=== PATIENT | male | born 1950 | race Caucasian/White ===

== ENCOUNTER 2024-07-26 07:19 | Day surgery (SDC) | payer MEDICARE, OTHER ==
[~2024-07-26] VITALS: Ht 180.3 cm; Wt 86.4 kg
[~2024-07-26 07:19] MED LIST: CEFAZOLIN SODIUM 2 GM/20 ML SYR IV SCH; FLOMAX0.4 MG PO; IBLOOD GLUCOSE TEST STRIP 1 EA TEST VI PRN; LACTATED RINGER'S 1,000 ML IV SCH; LIDOCAINE HCL 1% 5 ML SDV INJ ONE; LISINOPRIL-HCT1 EAC1 PO; OMEPRAZOLE20 M1 PO; ROPINIROLE HCL4 MG PO; ZOCOR40 MG PO
[2024-07-26 07:36] VITALS: BP 133/74
[2024-07-26 08:10] LABS: ANION GAP 12.7 (7-21); BUN/CREATININE RATIO 10.75 (6.0-28.6); CREATININE, SERUM 0.93 mg/dL (0.70-1.30); POTASSIUM 3.7 mmol/L (3.5-5.1)
[2024-07-26] MEDS ORDERED: LIDOCAINE HCL 0.5% 50 ML SDV ONE (09:12)
[2024-07-26] MEDS ORDERED: propofoL 200 MG/20 ML VIAL ONE (09:12)
[2024-07-26] MEDS ORDERED: KETOROLAC TROMETHAMINE 30 MG/ML VIAL ONE (09:12)
[2024-07-26] MEDS ORDERED: DEXAMETHASONE SOD PHOS 4 MG/ML VIAL ONE (09:12)
[2024-07-26] MEDS ORDERED: HYDROCODONE/ACETA 5/325 TAB PO PRN (09:45)
[2024-07-26] MEDS ORDERED: fentaNYL citrate 100 MCG/2 ML VIAL ONE (09:50)
[2024-07-26] MEDS ORDERED: HYDROCODON-ACE1 EA10 PO (10:18)
--- NOTE | 2024-07-26 10:40 | NUR ---
07/26/24 1040 Juana Finch 1021- PT ARRIVES TO PACU, RESTING SEMI FOWLERS, VSS ON 6L VIA MASK OPA IN PLACE, REU. PT NOT RESPONSIVE TO NOXIOUS STIMULI. 1026- PT EYES OPEN, ATTEMPTING TO TALK, OPA REMOVED. VS REMAIN STABLE ON 6L VIA MASK, REU. 1028- PT TITRATED TO RA, VSS ON RA. PT DENIES ANY PAIN OR NAUSEA. PT'S R HAND/WRIST ELEVATED ON PILLOW, ICE PACK IN PLACE. CMS INTACT.
[2024-07-26 11:01] VITALS: BP 125/77
--- NOTE | 2024-07-27 14:16 | OR ---
[facility] [address], [place] [address] Signed DATE OF OPERATION: 07/26/2024 SURGEON: Dai Duff MD PREOPERATIVE DIAGNOSIS: Carpal tunnel syndrome, right. POSTOPERATIVE DIAGNOSIS: Carpal tunnel syndrome, right. PROCEDURE PERFORMED: Right carpal tunnel release. TOILET ATTENDANT: None. ANESTHESIA: Desire block. TOURNIQUET TIME: 20 minutes. BRIEF HISTORY: Ryan is a 73-year-old gentleman with pain, numbness and some atrophy in his hand. Nerve conduction studies were consistent with severe carpal tunnel. Risks and benefits of operative treatment were discussed with him. He elected to proceed. PROCEDURE IN DETAIL: Once consent was obtained, he was taken to the operating room. After adequate anesthesia, he was left on the day surgery bed and a hand table was brought in. The hand was prepped and draped in a standard sterile fashion. A 1.5 cm incision was made transversely in the distal wrist crease. The palmaris longus, which was fairly robust was retracted and protected. The underlying transverse carpal ligament was then dissected free of overlying soft tissue proximally and distally. Under loupe magnification it was released proximally a cm and distally to the distal extent. This was carefully palpated using a [place] and found to be completely released. The wound was copiously irrigated with normal saline, closed with 3-0 Stratafix and Steri-Strips. The wound was infiltrated with 5 mL 0.25% plain lidocaine. The wound was dressed with bacitracin, Adaptic 4 x 8s, and gauze. He tolerated the procedure well. All sponge, needle, and instrument counts correct. Electronically Signed By: DAI DUFF MD 07/27/24 1416 PATIENT NAME: RYAN LACKEY OPERATIVE REPORT DATE OF : 46 REPORT #: [id number] PHYSICIAN: DAI DUFF MD PCP: RUBIO TOURE MD REPORT IS CONFIDENTIAL AND NOT TO BE RELEASED WITHOUT AUTHORIZATION [address] [place], [place] [address] Signed Dai Duff MD BA/SIDL /[id number] Copies: ~ Electronically Signed By: DAI DUFF MD 07/27/24 1416 PATIENT NAME: RYAN LACKEY OPERATIVE REPORT DATE OF : 46 REPORT #: [id number] PHYSICIAN: DAI DUFF MD PCP: RUBIO TOURE MD REPORT IS CONFIDENTIAL AND NOT TO BE RELEASED WITHOUT AUTHORIZATION
== END 2024-07-26 11:23 | disposition home or self-care (01) ==
LOC: DS 07:19
PROVIDERS: Nurse Anesthetist, Certified Registered; ATTEND Specialist
PROC: 01N50ZZ Release Median Nerve, Open Approach (ICD-10-PCS; principal; 2024-07-26 11:15)
DX: G56.01 Carpal tunnel syndrome, right upper limb (principal); I10 Essential (primary) hypertension; K21.9 Gastro-esophageal reflux disease without esophagitis; Z87.891 Personal history of nicotine dependence
CPT/HCPCS: 01810; 36415; 80048; J0690; J1100; J1885; J2704; J3010; J7121